=== PATIENT | female | born 1945 | race Caucasian/White ===

== ENCOUNTER → 2023-08-17 11:36 | Outpatient (REF) | payer MEDICARE, OTHER, SELFPAY | LOC: HWRAD 11:36 | PROVIDERS: ATTENDING PHYSICIAN Family Medicine | DX: R63.4 Abnormal weight loss (principal); R19.4 Change in bowel habit | CPT/HCPCS: 74177; Q9967 ==

== ENCOUNTER → 2023-09-03 12:17 | Outpatient (REF) | payer MEDICARE, OTHER, SELFPAY | LOC: HWRAD 12:17 | PROVIDERS: ATTENDING PHYSICIAN Family Medicine | DX: K63.0 Abscess of intestine (principal) | CPT/HCPCS: 74177; Q9967 ==

== ENCOUNTER 2023-09-04 21:01 | Inpatient (IN) | payer MEDICARE, OTHER, SELFPAY ==
[2023-09-04 18:45] VITALS: BP 144/88
[2023-09-04 19:01] LABS: % Basophils 0.4 % (0-2); % Eosinophils 2.1 % (0-6); % Immature Granulocytes 0.2 % (0-0.5); % Lymphocytes 20.5 % (20.5-51.1); % Monocytes 6.4 % (1.7-9.3); % Neutrophils 70.4 % (42.2-75.2); Absolute Eosinophils 0.2 10^3/uL (0-0.7); Absolute Lymphocytes 1.7 10^3/uL (1.2-3.4); Absolute Monocytes 0.5 10^3/uL (0.1-0.6); Absolute Neutrophils 5.7 10^3/uL (1.4-6.5); Hematocrit 35.7 % (37.0-47.0); Hemoglobin 12.5 g/dL (12.0-16.0); Mean Corpuscular Hgb 28.1 pg (27.0-31.0); Mean Corpuscular Volume 80.2 fL (81.0-99.0); Mean Platelet Volume 8.7 fL (7.4-10.4); Nucleated Red Blood Cells % 0 %; Platelet Count 272 10^3/uL (130-400); Red Blood Cell Count 4.45 10^6/uL (4.20-5.40); Red Cell Dist. Width 13.9 % (11.5-14.5); White Blood Cell Count 8.1 10^3/uL (4.8-10.8)
[2023-09-04 19:27] LABS: ALT (SGPT) 14 U/L (0-35); AST (SGOT) 24 U/L (14-36); Alkaline Phosphatase 106 U/L (38-126); Blood Urea Nitrogen 24 mg/dl (7-17); Carbon Dioxide 24 mmol/L (22-30); Chloride 106 mmol/L (98-107); Glucose 113 mg/dl (70-99); Potassium 4.3 mmol/L (3.5-5.1); Sodium 137 mmol/L (135-145); Total Bilirubin 0.4 mg/dl (0.2-1.3); eGFR 58.39
[2023-09-04 20:00] VITALS: BP 154/78
[2023-09-04 20:11] VITALS: BMI 33.7
--- NOTE | 2023-09-04 20:16 | ED.GENMED ---
Addendum entered and electronically signed by Reese Gonzalez DO 09/04/23 20:23:
Reviewed with nursing to reviewed with pharmacy patient was treated with 2 weeks of Levaquin and Flagyl not currently taking
Original Note:
History of Present Illness
General
Chief Complaint: Abdominal Symptoms
Source: patient and previous radiology exam
Exam Limitations: none
Time Seen by Provider: 09/04/23 20:04
History of Present Illness
History of Present Illness:
77-year-old female hypertension prior kidney stone surgery presents from outpatient radiology apparently has CAT scan with diverticular abscess no new issue treated at home with what sounds like Levaquin and Flagyl symptoms improved really not much
pain is having some irregular bowel movements, had a repeat scan today referred to the ER, previously saw Dr. Rivas for colonoscopies not diabetic
Past History
Past History
ED Past Medical History: HTN
ED Past Surgical History: Urological; Negative Bowel resection
Social History
Tobacco: Non-smoker
Alcohol: None
Drug: None
Living: with family
Employment: Retired
Review of Systems
Review of Systems
All Other Systems: Not applicable
Constitutional: Reports fatigue; Denies fever
EENT: Reports no symptoms
Respiratory: Reports no symptoms
Cardiac: Reports no symptoms
ABD/GI: Reports pain (Very mild); Denies abdominal pain, nausea, vomiting or bloody stools
: Reports no symptoms
Musculoskeletal: Reports no symptoms
Skin: Reports no symptoms
Phy Exam
Physical Exam
Physical Exam:
Physical Exam
General: no apparent distress, not acutely ill
Neck: Without jaundice
Heart: s1/s2 regular rate and rhythm, no murmur. equal radial pulses.
Lungs: no acute respiratory distress. clear bilaterally
Abdomen: Soft, minimal lower abdominal tenderness no guarding or
Neuro: alert and oriented. no focal neurological deficits
Skin: no rash
Psychiatric: well kept. interactive and cooperative
Extremities: no edema.
Course
Orders/Labs/Results
Orders:
Orders
09/04/23 18:55
Complete Blood Count/With Diff Urgent
Comprehensive Metabolic Panel Urgent
09/04/23 20:02
Add On- LAB Urgent
Tests Added?: lipase
Abnormal Lab Results
09/04/23
18:55
Hct 35.7 L %
(37.0-47.0)
MCV 80.2 L fL
(81.0-99.0)
BUN 24 H mg/dl
(7-17)
Glucose 113 H mg/dl
(70-99)
09/04/23 18:55
09/04/23 18:55
Vital Signs
Initial and Last Documented VS:
Initial Vital Signs
Temp Pulse Resp BP Pulse Ox
99 F 71 18 144/88 99
09/04/23 18:45 09/04/23 18:45 09/04/23 18:45 09/04/23 18:45 09/04/23 18:45
Last Documented Vital Signs
Temp Pulse Resp BP Pulse Ox
99 F 69 19 154/78 98
09/04/23 18:45 09/04/23 20:00 09/04/23 20:00 09/04/23 20:00 09/04/23 20:00
MDM/Problems Addressed
Differential Diagnosis Includes:
Diverticular abscess diverticulitis
MDM/Problems Addressed:
Diverticular abscess
Chronic conditions affecting care: HTN
Acute Exacerbation and/or Progression of Chronic Illness: HTN
*Radiology
Radiology exam reviewed: radiology read reviewed
*Pulse Oximetry
Patient hypoxic: no
*Critical Care Note
Total Time (30-74mins, 75-104mins- exclusive of procedures): Not Applicable
Update Note
Update Note:
Update patient's labs are noted she is minimally tender nontoxic I do not see any indications for urgent surgery will be admitted to the hospital consult placed to IR nonurgently,
ED Attending Note
-
Portions of this chart may have been created with voice recognition software.� Occasional wrong word or��sound alike� substitutions may have occurred due to the inherent limitations of voice recognition software.
Discharge Plan
Departure
Patient Disposition: Admit
Date of Disposition: 09/04/23
Time of Disposition: 20:18
Admit to: Med/Surg
Presentation/result/management discussed w/ accepting MD/DO: Hospitalist
Condition: Fair
Discharge Problem:
Colonic diverticular abscess
Prescriptions:
No Action
lisinopril 5 MG tablet
20 mg PO BID
hydrochlorothiazide 25 MG tablet
25 mg PO DAILY
Patient Comments:
1/2 tab daily
sertraline 50 MG tablet
75 mg PO DAILY
Patient Comments:
1 1/2 tab daily
lqezqvcabbd-wuiwknpof-skg C-Mn 1 TAB tablet
1,000 mg PO DAILY
Patient Comments:
1500/1200 mg
cholecalciferol (vitamin D3) 1,000 UNITS tablet
1,000 units PO DAILY
atorvastatin 10 MG tablet
10 mg PO DAILY
metoprolol succinate 50 MG tablet extended release 24 hr
50 mg PO DAILY
naproxen sodium [Aleve] 220 MG tablet
1 tab PO DAILY
ciagd-3m-iyg-epa-fish oil 1 EACH capsule,delayed release(DR/EC)
1 tab PO DAILY
aspirin 325 MG tablet,delayed release (DR/EC)
81 mg PO DAILY
Interventions
Interventions:
*Risk Screen - Suicide Last Done: 09/04/23 18:45
*General Assessment Last Done: 09/04/23 18:45
*Neglect/Abuse Screening Last Done: 07/30/24 18:45
Discharge Date and Time
Print Language: SRI LANKAN
--- NOTE | 2023-09-04 20:49 | HPS.HSE ---
Family Physician
-
Family Physician: Merly Marvin
Chief Complaint
-
diarrhea
History of Present Illness
77-year-old female past medical history of hypertension, depression, obesity, hypercholesterolemia, kidney stones, osteoarthritis, presenting for diverticular abscess.
Patient has been having chronic loose stools with occasional diarrhea exacerbated by stress over the past year. She occasionally has pain in her bilateral lower quadrants of her abdomen. Denies any nausea or vomiting or fevers or chills. She saw
her primary care physician and had a CT scan of the abdomen on 08/16 which showed diverticulitis with abscess. She was treated with oral antibiotics without improvement in her symptoms. He had a second CT scan performed yesterday which shows
worsening of the abscess so she was told to come to the emergency room.
She drinks alcohol occasionally. She denies smoking.
Medical History
Past Medical History
Past Medical History: Reports Other (hypertension, depression, obesity, hypercholesterolemia, kidney stones, osteoarthritis,)
Past Surgical History: Reports Orthopedic, Urological and Other (parathyroiectomy, )
Social History
Tobacco: Non-smoker
Alcohol: Occasional
Drug: None
Family History
Family History: Not pertinent
Allergies / Home Medications
Allergies reflects when Allergies were last updated in [employer].
Home Medications with original date entered in [employer]
Allergy/Medication List:
Allergies
Allergy/AdvReac Type Severity Reaction Status Date / Time
Cephalosporins Allergy Unsure Verified 09/04/23 20:11
morphine Allergy HALLUCINATION/SEVERE Verified 09/04/23 20:11
VOMITING
penicillin G Allergy Itching, Verified 09/04/23 20:11
Hives
Penicillins Allergy Itching, Verified 09/04/23 20:11
hives
potassium Allergy Unknown Verified 09/04/23 20:11
Home Medications
tthofspglhi-iobgdrebo-lsl C-Mn 750 mg-600 mg-55 mg-5 mg tablet 1 tab PO DAILY 04/20/14
atorvastatin 10 mg tablet 10 mg PO DAILY 08/14/16
metoprolol succinate 50 mg tablet,extended release 24 hr 50 mg PO DAILY 08/14/16
omega-3s 980 mg-dha 253 mg-epa 647 mg-fish oil capsule,delayed release 1 tab PO DAILY 08/14/16
amlodipine 2.5 mg tablet 2.5 mg PO DAILY 09/04/23
cholecalciferol (vitamin D3) 25 mcg (1,000 unit) tablet 25 mcg PO DAILY 09/04/23
hyoscyamine sulfate 0.125 mg tablet 0.125 mg PO Q4HPRN PRN ibs cramps 09/04/23
lisinopril 20 mg tablet 20 mg PO DAILY 09/04/23
sertraline 100 mg tablet 100 mg PO DAILY 09/04/23
Review of Systems
-
History Source: Patient
A 12 point ROS was completed and negative except as noted: Yes
Constitutional: Reports No Symptoms
EENT: Reports No Symptoms
Respiratory: Reports No Symptoms
Cardiac: Reports No Symptoms
Abdomen/GI: Reports See HPI
: Reports No Symptoms
Musculoskeletal: Reports No Symptoms
Skin: Reports No Symptoms
Neurological: Reports No Symptoms
Endocrine: Reports No Symptoms
Hematologic/Lymphatic: Reports No Symptoms
Psych: Reports No Symptoms
Physical Exam
Vital Signs
Vital Signs
Temp Pulse Resp BP Pulse Ox
99 F 69 19 154/78 98
09/04/23 18:45 09/04/23 20:00 09/04/23 20:00 09/04/23 20:00 09/04/23 20:00
Physical Exam
General: Well Developed, Well Nourished and No Apparent Distress
HEENT: NormoCephalic, Moist mucous membranes and Atraumatic
Respiratory: Clear
Cardiac: S1/S2 and Regular Rhythm; No Murmur or Rub
GI: Soft, Non Distended, Normal Bowel Sounds and Tender (lower quadrants bilterally ); No Organomegaly
Rectal: Deferred by Provider
Musculoskeletal: No Clubbing, No Cyanosis and No Edema
Skin: No Rash
Neuro: Nonfocal/grossly intact
Laboratory Results
-
09/04/23 18:55
09/04/23 18:55
Laboratory Results
Total Bilirubin 0.4 mg/dl (0.2-1.3) 09/04/23 18:55
AST 24 U/L (14-36) 09/04/23 18:55
ALT 14 U/L (0-35) 09/04/23 18:55
Alkaline Phosphatase 106 U/L (38-126) 09/04/23 18:55
Data Reviewed
-
Lab Data: Labs Reviewed by me
Old Records: Reviewed
Impression/Plan
-
IMPRESSION:
PLAN:
# Acute diverticulitis with intramural abscess at left lateral margin
-Levaquin/Flagyl due to allergies
-IR consulted for drainage
-Colorectal surgery consulted
-Clear liquids, n.p.o. past midnight
# Chronic loose stools
-Outpatient follow-up with GI
Essential hypertension
-Continue amlodipine, lisinopril, metoprolol
Depression
-Continue sertraline
Obesity
Hypercholesterolemia
-Continue statin
Kidney stones
Osteoarthritis
DNR/DNI
DVT prophylaxis-SCDs
N.p.o. past midnight
--- NOTE | 2023-09-04 21:34 | PTCARENOTE ---
Pt received from ED to [facility]-2. Pt oriented to room and call ruiz.
[2023-09-04 21:36] LABS: Lipase 63 U/L (23-300)
[2023-09-04] MEDS: LEVAQUIN 150 IV (21:48)
[2023-09-04 22:41] VITALS: BP 151/74; BMI 33.2
[2023-09-04] MEDS: FLAGYL 500 MG 100 IV (23:41)
[2023-09-05] MEDS: FLAGYL 500 MG 100 IV ×2 (05:09→16:24)
[2023-09-05 07:00] VITALS: BP 166/77
[2023-09-05 07:43] LABS: ALT (SGPT) 12 U/L (0-35); AST (SGOT) 21 U/L (14-36); Albumin 3.3 g/dl (3.5-5.0); Alkaline Phosphatase 87 U/L (38-126); Blood Urea Nitrogen 19 mg/dl (7-17); Calcium 9.4 mg/dl (8.4-10.2); Carbon Dioxide 29 mmol/L (22-30); Chloride 107 mmol/L (98-107); Estimated Creatinine Clearance 57 ml/min; Glucose 111 mg/dl (70-99); Potassium 4.3 mmol/L (3.5-5.1); Sodium 139 mmol/L (135-145); Total Bilirubin 0.6 mg/dl (0.2-1.3); Total Protein 5.8 g/dl (6.3-8.2); eGFR > 60.00
[2023-09-05 08:00] LABS: % Basophils 0.6 % (0-2); % Eosinophils 3.2 % (0-6); % Immature Granulocytes 0.4 % (0-0.5); % Lymphocytes 22.4 % (20.5-51.1); % Monocytes 7.9 % (1.7-9.3); % Neutrophils 65.5 % (42.2-75.2); Absolute Eosinophils 0.2 10^3/uL (0-0.7); Absolute Lymphocytes 1.2 10^3/uL (1.2-3.4); Absolute Monocytes 0.4 10^3/uL (0.1-0.6); Absolute Neutrophils 3.5 10^3/uL (1.4-6.5); Hematocrit 32.3 % (37.0-47.0); Hemoglobin 10.8 g/dL (12.0-16.0); Mean Corp Hgb Conc. 33.4 g/dL (33.0-37.0); Mean Corpuscular Hgb 27.6 pg (27.0-31.0); Mean Corpuscular Volume 82.6 fL (81.0-99.0); Mean Platelet Volume 8.9 fL (7.4-10.4); Nucleated Red Blood Cells % 0 %; Platelet Count 217 10^3/uL (130-400); Red Blood Cell Count 3.91 10^6/uL (4.20-5.40); White Blood Cell Count 5.3 10^3/uL (4.8-10.8)
--- NOTE | 2023-09-05 08:06 | CON.IR ---
Consultation
-
Reason for Consultation: Abscess
Medical History
Allergies / Home Medications
Allergy/AdvReac Type Severity Reaction Status Date / Time
Cephalosporins Allergy Unsure Verified 09/04/23 20:11
morphine Allergy HALLUCINATION/SEVERE Verified 09/04/23 20:11
VOMITING
penicillin G Allergy Itching, Verified 09/04/23 20:11
Hives
Penicillins Allergy Itching, Verified 09/04/23 20:11
hives
potassium Allergy Unknown Verified 09/04/23 20:11
�Medication �Instructions �Recorded �Confirmed �Type
ytnwmqpnohc-lgkhyaxtj-zaq C-Mn 750 1 tab PO DAILY Supplement 04/20/14 09/04/23 History
mg-600 mg-55 mg-5 mg tablet
atorvastatin 10 mg tablet 10 mg PO DAILY High Cholesterol 08/14/16 09/04/23 History
metoprolol succinate 50 mg 50 mg PO DAILY Blood Pressure 08/14/16 09/04/23 History
tablet,extended release 24 hr
omega-3s 980 mg-dha 253 mg-epa 647 1 tab PO DAILY Supplement 08/14/16 09/04/23 History
mg-fish oil capsule,delayed release
amlodipine 2.5 mg tablet 2.5 mg PO DAILY Blood Pressure 09/04/23 09/04/23 History
cholecalciferol (vitamin D3) 25 25 mcg PO DAILY Supplement 09/04/23 09/04/23 History
mcg (1,000 unit) tablet
hyoscyamine sulfate 0.125 mg tablet 0.125 mg PO Q4HPRN PRN ibs cramps 09/04/23 09/04/23 History
lisinopril 20 mg tablet 20 mg PO DAILY Blood Pressure 09/04/23 09/04/23 History
sertraline 100 mg tablet 100 mg PO DAILY Depression 09/04/23 09/04/23 History
Physical Exam
Vital Signs
Temp Pulse Resp BP Pulse Ox
97.9 F 56 18 166/77 98
09/05/23 07:00 09/05/23 07:00 09/05/23 07:00 09/05/23 07:00 09/05/23 07:00
Lab Results
09/05/23 06:34
09/05/23 06:34
Assessment / Plan
-
Reviewed imaging. Small perisigmoid abscess which does not have a safe window through which to aspirate or place a drain. As such, we will defer intervention at this time.
--- NOTE | 2023-09-05 09:06 | CON.CRS ---
Consultation
-
Date/Time Consultation Requested: 09/04/2023, 21:34
Date/Time Consultation Performed: 09/05/2023, 08:15
Requesting Provider: Natali Avila MD
Performing Provider: Johnathon Page MD
Reason for Consultation: diverticulitis
Medical History
-
Chief Complaint: Abdominal pain
History of Present Illness:
77-year-old female with a past medical history of hypertension hypercholesterolemia and obesity presents to [facility] due to abnormal CT scan performed yesterday. The patient was treated for diverticulitis earlier this month and underwent
a CT scan on 08/17/2023 which showed an intramural abscess adjacent to the sigmoid colon measuring 2.4 x 2.2 x 1.0 cm. She was treated with outpatient oral antibiotics. She had a repeat CT scan on which showed a 7 cm in length segment of acute
diverticulitis with a 3.9 cm feces filled intramural abscess of the left lateral margin which has increased in size. Given this finding her primary care physician recommended she go to the emergency room. The patient states her bowel movements
have been mucus-like in nature since onset of this problem. Also for about the past year her bowels have been abnormal which prompted the initial CT at the beginning of August. She has never had diverticulitis before. She is actually felt better
overall since starting the oral antibiotics. She is hungry and would like to eat something. Her main complaint is fatigue. Her last colonoscopy was on 07/22/[address] Rivas which showed normal mucosa in the entire colon. In the ER her WBC
was 8.1 and is 5.3 today. She has been started on IV antibiotics. She was kept n.p.o. for potential of IR procedure for drainage of the abscess later today. We have been consulted for further surgical recommendations.
Past Medical History
Past Medical History: HTN, Hypercholesterolemia and Other (depression, obesity, osteoarthritis, kidney stones)
Past Surgical History: Other (parathyroiectomy, kidney stones)
Social History
Tobacco: Non-Smoker
Alcohol: Occasional
Drug: None
Family History
Family History: Reviewed & Not Pertinent
Allergies / Home Medications
Allergy/AdvReac Type Severity Reaction Status Date / Time
Cephalosporins Allergy Unsure Verified 09/04/23 20:11
morphine Allergy HALLUCINATION/SEVERE Verified 09/04/23 20:11
VOMITING
penicillin G Allergy Itching, Verified 09/04/23 20:11
Hives
Penicillins Allergy Itching, Verified 09/04/23 20:11
hives
potassium Allergy Unknown Verified 09/04/23 20:11
�Medication �Instructions �Recorded �Confirmed �Type
vmaicdtflpd-abrdqzybh-kuu C-Mn 750 1 tab PO DAILY Supplement 04/20/14 09/04/23 History
mg-600 mg-55 mg-5 mg tablet
atorvastatin 10 mg tablet 10 mg PO DAILY High Cholesterol 08/14/16 09/04/23 History
metoprolol succinate 50 mg 50 mg PO DAILY Blood Pressure 08/14/16 09/04/23 History
tablet,extended release 24 hr
omega-3s 980 mg-dha 253 mg-epa 647 1 tab PO DAILY Supplement 08/14/16 09/04/23 History
mg-fish oil capsule,delayed release
amlodipine 2.5 mg tablet 2.5 mg PO DAILY Blood Pressure 09/04/23 09/04/23 History
cholecalciferol (vitamin D3) 25 25 mcg PO DAILY Supplement 09/04/23 09/04/23 History
mcg (1,000 unit) tablet
hyoscyamine sulfate 0.125 mg tablet 0.125 mg PO Q4HPRN PRN ibs cramps 09/04/23 09/04/23 History
lisinopril 20 mg tablet 20 mg PO DAILY Blood Pressure 09/04/23 09/04/23 History
sertraline 100 mg tablet 100 mg PO DAILY Depression 09/04/23 09/04/23 History
Review of Systems
-
A 10 point review of systems was completed, and was negative except as per HPI.
Physical Exam
Vital Signs
Temp 97.9 F 09/05/23 07:00
Pulse 56 09/05/23 07:00
Resp Rate 18 09/05/23 07:00
Blood pressure 166/77 09/05/23 07:00
SaO2 98 09/05/23 07:00
09/04/23 09/05/23 09/06/23
06:59 06:59 06:59
Actual Weight 87.77 kg
Body Mass Index (BMI) 33.2
Lab Results / Allergies
09/05/23 06:34
09/05/23 06:34
WBC 5.3 10^3/uL (4.8-10.8) 09/05/23 06:34
Hgb 10.8 g/dL (12.0-16.0) L 09/05/23 06:34
Hct 32.3 % (37.0-47.0) L 09/05/23 06:34
Plt Count 217 10^3/uL (130-400) D 09/05/23 06:34
Abs Immat Gran (auto) 0.0 10^3/uL (0-0.05) 09/05/23 06:34
Neutrophils % 65.5 % (42.2-75.2) 09/05/23 06:34
Allergy/AdvReac Type Severity Reaction Status Date / Time
Cephalosporins Allergy Unsure Verified 09/04/23 20:11
morphine Allergy HALLUCINATION/SEVERE Verified 09/04/23 20:11
VOMITING
penicillin G Allergy Itching, Verified 09/04/23 20:11
Hives
Penicillins Allergy Itching, Verified 09/04/23 20:11
hives
potassium Allergy Unknown Verified 09/04/23 20:11
Physical Exam
General: Well Developed and Well Nourished
GI: Soft, Non Distended and Tender (Mild left lower quadrant)
Neuro: AO x 3
Psych: Calm
Data Reviewed
-
CT Scan: Image Personally Visualized and interpreted, Report Reviewed by me and Discussed with Patient
Labs: Labs Reviewed by me, Discussed with Physician and Discussed with Patient
Old Records: Reviewed
Assessment / Plan
-
Assessment: 77-year-old female first attack of diverticulitis found to have sigmoid diverticulitis on 2 CT scans about 2 weeks apart with an increase in intramural abscess
Plan:
IR has been consulted and there is no safe window which aspirator to place a drain. Given this, we will consult ID for further antibiotic recommendations. Okay to advance diet to clears and continue IV fluids. If she were to worsen she will
require a colectomy with colostomy creation. However plan for now is to get through this admission with IV antibiotics and then can discuss elective surgery as an outpatient with Dr. Page in the office. Plan was discussed with patient.
[2023-09-05] MEDS: ZOLOFT 100 MG PO (09:13)
[2023-09-05] MEDS: ZESTRIL 20 MG PO (09:13)
[2023-09-05] MEDS: NORVASC 2.5 MG PO (09:14)
[2023-09-05] MEDS: VITAMIN D3 (cholecalciferol) 25 MCG PO (09:14)
[2023-09-05] MEDS: LIPITOR 10 MG PO (09:14)
[2023-09-05] MEDS: TOPROL XL 50 MG PO (09:15)
--- NOTE | 2023-09-05 13:31 | W.PN.UPDATE ---
Update Note
Progress Note Update
I saw and evaluated the patient. Please see the additional additions/corrections to the residents independent note. I will review the residents note after it is filed.
Ms King is a 77 year old female with history of renal stones who has been managed diverticulitis with 2.4x2.2x1.0 cm intramural abscess of the sigmoid since 08/17/23. No known history of diverticulitis. She first presented to her PCP 07/30 for a
change in bowel movements and diarrhea which she related to anxiety over about two with about 6 lbs unintentional weight loss of 9 months. Reporting 3 small soft BMs QAM without blood, then two further BMs in the evening. Of note 07/22/18
colonoscopy nonrevealing, plan to repeat at 10 years. She was planned for CT a/p which showed the sigmoid diverticulitis and the intramural abscess. She was prescribed levofloxacin 500 mg PO qday and metronidazole 250 mg PO TID both for 14 days.
The case was reviewed with IR and GI. There were plans to repeat the CT scan in two weeks 09/02). CT was repeated and sigmoid diverticulitis had persisted and the abscess was noted to be filled with feces and increased in size to 3 x 3.5 x 3.9 cm.
two stable splenic lesions were also noted.
Since arrival here patient has been afebrile, hd stable, without leukocytosis
Allergy history
Medical History
Past Medical History
Past Medical History: Reports Other (hypertension, depression, obesity, hypercholesterolemia, kidney stones, osteoarthritis,)
Past Surgical History: Reports Orthopedic, Urological and Other (parathyroidectomy, ) bilateral knee replacements with one revision, kidney stone removal
Social History
Tobacco: Non-smoker
Alcohol: Occasional
Drug: None
Family History
Family History: Not pertinent
Allergy History:
Allergy: penicillin G:
<del>cephalosporins</del> <del>-</del> <del>denied</del>
morphine hallucinations - ADR
Home meds reviewed:
ROS: negative except as listed above
VS: no recorded fevers, BP and VS stable
PE: Gen: NAD
Resp: CTA BL no r/r/r
CV: s1/s2 rrr, no mgr
GI: soft, nd, mildly tender in the RLQ, nabs
msk: no edema
skin: no rashes
Labs: reviewed as noted
no cultures
CT a/p with IV and oral contrast: feces filled abscess 3.0 x 3.5 x 3.9 cm in AP and acute diverticulitis; incidental note of two splenic lesions that are stable
I reviewed the CT scan personally
A&P
77 year old female with chronic increase in BMs for months, without abdominal pain, found to have sigmoid diverticulitis with abscess 07/22, treated with oral levofloxacin 500 and oral metronidazole 250 mg for two weeks with notable progression on
follow up imaging. Symptoms currently include fatigue, no abdominal pain. Evaluated by IR and colorectal surgery and planned for medical management.
- if febrile over 100.5 orally then send blood cultures x2
- patient currently on levofloxacin 750 and metronidazole 500 mg IV TID - given progression on levofloxacin 500 qday and metronidazole 250 mg tid favor switch to alternative regimen
- at the point switch to ertapenem 1 gm IV q24 hours
- discussed at length signs of perforation and that even with aggressive IV antibiotics there is still risk of perforation
- baseline esr and crp in the AM
- plan 4 weeks of IV treatment
- picc line
- weekly cbc, bmp, esr, crp
- follow up with repeat ct scan in about 3-4 weeks and follow up with me in 3-4 weeks
Tomas Calhoun
--- NOTE | 2023-09-05 13:32 | W.PN.HOSP.TC ---
Today's Communication/Plan
-
folllow up id rec for atb
advance diet as tolerated. start cld
Assessment / Plan
Assessment / Plan
NAD, resting comfortably in bed
Scleral anicteric
Moist mucous membranes
No JVD
CTA bilateral
Normal S1-S2 no murmurs
Soft nontender nondistended bowel sounds active
No peripheral pitting edema
Moves extremities spontaneously
AAOx3
Diverticulitis with small abscess unable to drain per IR. Colorectal surgery evaluated continue IV antibiotics consult ID. Therefore ID has been consulted. At this time we will go ahead and initiate clear liquid diet. If decompensate colorectal
surgery would take her to the OR for colectomy/colostomy. Otherwise outpatient elective surgery follow-up
Hypertension continued hypertensive
Depression continue sertraline
Hypercholesterolemia continues stati
Anticipated Discharge: Within 24 hours
Subjective/Interval History
-
Date of Service: September 05, 2023
seen and examined
in good spirits
asking when she will be discahrged
Objective Data
-
Labs:
Laboratory Results
09/05/23
06:34
WBC 5.3
Hgb 10.8 L
Hct 32.3 L
Plt Count 217 D
Sodium 139
Potassium 4.3
Chloride 107
Carbon Dioxide 29
BUN 19 H
Creatinine 0.9
Glucose 111 H
Calcium 9.4
Total Bilirubin 0.6
AST 21
ALT 12
Alkaline Phosphatase 87
Vital Signs:
Vital Signs
Temp Pulse Resp BP Pulse Ox
97.9 F 56 18 166/77 98
09/05/23 07:00 09/05/23 07:00 09/05/23 07:00 09/05/23 07:00 09/05/23 07:00
I&O
09/04/23 09/05/23 09/06/23
06:59 06:59 06:59
Intake Total 600 / 600
Balance 600 / 600
[2023-09-05 15:24] VITALS: BP 150/76
--- NOTE | 2023-09-05 16:31 | CM ---
Addendum entered by Ernestina Meek 09/05/23 16:38:
[place]
[phone]

Original Note:
regulatory affairs manager reviewed patient's chart and met with patient and patient lives alone in a one story home with 2 steps to enter, Patient is independent with adl's and ambulation. Patient is for possible discharge to home on IV Invanz 1gm Q24, referral
sent to [facility] and referral sent to [facility] visiting nurses. Patient mentioned that she would like to go to [place] for a few days and [facility] made aware and patient maybe able to do this per [facility].
PCP: Merly Marvin
Pharmacy [facility].
Plan; Home with IV ABX from [facility] and [facility] visiting nurses.
--- NOTE | 2023-09-05 16:54 | CON.ID ---
Addendum entered and electronically signed by Radha Calhoun MD 09/06/23 08:40:
I personally performed a history and physical exam of the patient and discussed management with the resident. I reviewed the resident's note and agree with the documented findings and plan of care HPI/CC with the additions/corrections listed in the
separate update note from the same day
Original Note:
Chief Complaint / Past History
Chief Complaint
Chronic diarrhea, diverticulitis + left intramural abscess
History of Present Illness
77-year-old female with history of chronic loose stools, obesity, hypertension, hyperparathyroidism, esophageal reflux, kidney stones, osteoarthritis, who was sent to the ED by her primary care physician after repeat CT of abdomen (09/02) revealed
worsening diverticulitis with left intramural abscess compared to 2 weeks prior. She had completed 2-week course of Levaquin 500 mg once daily and metronidazole 250 mg 3 times daily after first CT abdomen (08/16) revealed sigmoid diverticulitis and
Intramural abscess adjacent to the sigmoid colon, measuring 2.4 x 2.2 x 1.0 cm.
Imaging study was initially obtained as part of workup for chronic loose stools for about 1 year, exacerbated by stress. Pt describes having up to 3 loose/mucus-like bowel movements on most mornings. Occasional mild pain/tenderness in RLQ prior to
bowel movements, but otherwise no abdominal pain. She denies fevers/chills or bloody/dark stool, but has had fatigue as a prominent chronic symptom. she has had a 6lb weight loss since start of chronic bowel symptoms.
Previous colonoscopy 07/22/2018 showed normal colonic mucosa with normal biopsies.
Upon arrival to ED, she was afebrile with stable vitals, WBCs 8.1, platelets 272, creatinine 0.9. She was started on IV Levaquin, Flagyl
Past History
Past Medical History: HTN and Other (Esophageal reflux, hyperparathyroidism, obesity, anxiety/depression, osteoarthritis, kidney stones)
Past Surgical History: Orthopedic (Bilateral knee replacements +1 revision, ), Urological (Kidney stones) and Other (Parathyroidectomy)
Allergy History:
morphine Allergy (Verified 09/04/23 20:11)
HALLUCINATION/SEVERE VOMITING
penicillin G Allergy (Verified 09/04/23 20:11)
Itching, Hives
Penicillins Allergy (Verified 09/04/23 20:11)
Itching, hives
potassium Allergy (Verified 09/04/23 20:11)
Unknown
Social History
Tobacco: Non-Smoker
Alcohol: Occasional
Drug: None
Family History
Family History: Not Pertinent
Review of Systems
Review of Systems
General: Negative Fever or Chills
HEENT: Headache
Cardiovascular: Negative Chest Pain or Palpitations
Gasteroenterology: Other (loose stools. No constipation. No bloody/dark stool. No abdominal pain)
Genital / Urological: Other (no retention ); Negative Dysuria
Vital Signs
Temp Pulse Resp BP Pulse Ox
98.2 F 56 16 150/76 96
09/05/23 15:24 09/05/23 15:24 09/05/23 15:24 09/05/23 15:24 09/05/23 15:24
Physical Exam
Physical Exam
Constitutional: No Acute Distress and Comfortable
Cardiovascular: Regular Rate and S1/S2; Negative Murmur, Rub or Peripheral Edema
Pulmonary: Clear and Non Labored; Negative Wheezes, Rales or Rhonchi
Gastrointestinal: Soft, Tender (Mild tenderness to deep palpation right lower quadrant), Non Distended, Normal Bowel Sounds, No Rebound and No Guarding
Genito-Urinary: Negative Suprapubic Tenderness
Extremities: Negative Edema
Skin: Warm and Dry
Neurological: Awake, Alert and Oriented
Psychological: Calm
Lines: PIV (Left antecubital fossa, non-erythematous, no swelling or tenderness)
Lab / Diagnostic Study Results
09/05/23 06:34
09/05/23 06:34
Abs Immat Gran (auto) 0.0 10^3/uL (0-0.05) 09/05/23 06:34
Absolute Neuts (auto) 3.5 10^3/uL (1.4-6.5) 09/05/23 06:34
Absolute Lymphs (auto) 1.2 10^3/uL (1.2-3.4) 09/05/23 06:34
Absolute Monos (auto) 0.4 10^3/uL (0.1-0.6) 09/05/23 06:34
Absolute Basos (auto) 0.0 10^3/uL (0-0.2) 09/05/23 06:34
Immature Gran % 0.4 % (0-0.5) 09/05/23 06:34
Neutrophils % 65.5 % (42.2-75.2) 09/05/23 06:34
Lymphocytes % 22.4 % (20.5-51.1) 09/05/23 06:34
Monocytes % 7.9 % (1.7-9.3) 09/05/23 06:34
Eosinophils % 3.2 % (0-6) 09/05/23 06:34
Basophils % 0.6 % (0-2) 09/05/23 06:34
Assessment / Plan
77-year-old female with diverticulitis and left intramural abscess
Diverticulitis plus left intramural abscess
-worse despite 2-week course of levo floxacillin 500 mg once daily, metronidazole 250 3 times daily.
-IR unable to access due to location of abscess
-Afebrile, no leukocytosis, denies abdominal pain
-Was on IV metronidazole 500 mg every 8, IV levofloxacin 750 mg daily. Given failed abx course on these antibiotics, and possible risk of abx resistance, will convert to 4 week course of IV Ertapenem for adequate coverage. Pt is agreeable to home IV
with weekly follow up. Believes she can manage care. Daughter and son lives close to patient and intend to help arrange care if needed.
-PICC line for daily home IV
-CM to arrange home IV
-Consider colorectal surgery if poor response to current abx plan
[2023-09-05] MEDS: INVANZ 60 MG IV (18:31)
[2023-09-05 23:44] VITALS: BP 144/74
[2023-09-06 07:20] VITALS: BP 173/83
[2023-09-06 08:05] LABS: Erythrocyte Sed Rate 54 mm/hour (0-20)
--- NOTE | 2023-09-06 09:08 | W.PN.CRS1 ---
Today's Communication / Plan
-
antibiotics per ID - outpatient picc/IV abx
surgical planning in an outpatient setting
okay for d/c if tolerates low residue diet
Assessment/Plan
-
Assessment: 77-year-old female first attack of diverticulitis found to have sigmoid diverticulitis on 2 CT scans about 2 weeks apart with an increase in intramural abscess
Plan:
- Advance diet to low residue
- Appreciate ID for management of antibiotics as an outpatient- PICC line and IV antibiotics
- No plans for surgery during this admission
- Patient will need to follow up in the office for surgical planning with Dr. Page to undergo a robotic sigmoidectomy in the near future. Discussed with patient. Our office will start working on arrangements. Okay for discharge from our perspective
if tolerates low residue and when antibiotics are in place.
Subjective Data
Subjective Data
Date of Service: September 06, 2023
Patient states she feels 'good'. She has no pain. She has mucus like bowel movements. She hasn't had flatus today yet. She has no nausea or vomiting.
Objective Data
-
Vital Signs
Temp Pulse Resp BP Pulse Ox
98.0 F 60 16 173/83 98
09/06/23 07:20 09/06/23 07:20 09/06/23 07:20 09/06/23 07:20 09/06/23 07:20
Intake & Output
09/05/23 09/06/23 09/07/23
06:59 06:59 06:59
Intake Total 600 / 600 1600 / 1600
Balance 600 / 600 1600 / 1600
Intake:
Oral fluids 600 / 600 1500 / 1500
IV piggybacks 100 / 100
Other:
Number of approximated MODERATE 3 1
amounts of urine
Number of approximated LARGE 1
amounts of urine
Lab Results
09/05/23 06:34
09/05/23 06:34
Physical Exam
-
General: No Acute Distress and AOx3
Abdomen: Soft, Non Distended and Non Tender
Skin: Warm and Dry
--- NOTE | 2023-09-06 09:52 | W.PN.ID1 ---
Addendum entered and electronically signed by Radha Calhoun MD 09/06/23 12:11:
I saw and evaluated the patient. I discussed with Dr Garcia. I reviewed the resident�s note and agree with findings and plan as documented in the resident�s note with the following additions/corrections:
S: afebrile, quite hypertensive this AM
surgery planned for 6 weeks from now
O: VSS
Focused exam: Gen: no acute distress
GI: soft, nondistended, nontender, mild RLQ tenderness, no rebound, no guarding
DLOA: awaiting PICC, PIV currently in place
Labs:
ESR: 54
CRP 5.9
Assessment and Plan:
77 year old female with chronic increase in BMs for months, without abdominal pain, found to have sigmoid diverticulitis with abscess 07/22, treated with oral levofloxacin 500 and oral metronidazole 250 mg for two weeks with notable progression on
follow up imaging. Symptoms currently include fatigue, no abdominal pain. Evaluated by IR and colorectal surgery and planned for medical management.
- switch to ertapenem 1 gm IV q24 hours
- discussed at length signs of perforation and that even with aggressive IV antibiotics there is still risk of perforation - she expressed understanding
- plan 6 weeks of IV treatment - to coordinate with surgery
- picc line is ordered
- weekly cbc, bmp, esr, crp while on home iV antibiotics
- follow up with repeat ct scan in about 3-4 weeks and follow up with me in 3-4 weeks
AW
Original Note:
Date of Service
Date of Service: September 06, 2023
Today's Communication
To get Picc line for Home IV. Okay to DC home with [facility]
Assessment / Plan
77-year-old female with diverticulitis and left intramural abscess
Diverticulitis plus left intramural abscess
-worse despite 2-week course of levofloxacin 500 mg once daily, metronidazole 250 3 times daily.
-IR unable to access due to location of abscess
-Afebrile, no leukocytosis, denies abdominal pain
-Was on IV metronidazole 500 mg every 8, IV levofloxacin 750 mg daily. Given failed abx course on these antibiotics, and possible risk of abx resistance, will convert to 4 week course of IV Ertapenem for adequate coverage. Pt is agreeable to home IV
with weekly follow up. Believes she can manage with VN. Daughter and son lives close to patient and intend to help arrange care if needed. Daughter shaan is a nurse.
-PICC line for daily home IV
-CM to arrange home IV
-Colorectal surgery to schedule robotic sigmoidectomy in 6 weeks
-Consider colorectal surgery if poor response to current abx plan
Chief Complaint
-: Other (Loose stools, diverticulitis, left intramural abscess)
Subjective / Review of Systems
No fever overnight.
Pt is comfortable with plan of care
Review of Systems: No Fever, No Chills, No Abdominal Pain and No Nausea
Vital Signs / Physical Exam
Vital Signs
Vital Signs
Temp Pulse Resp BP Pulse Ox
98.0 F 60 16 173/83 98
09/06/23 07:20 09/06/23 07:20 09/06/23 07:20 09/06/23 07:20 09/06/23 07:20
Physical Exam
Constitutional: No Acute Distress and Comfortable
Cardiovascular: Regular Rate and S1/S2; Negative Murmur or Rub
Pulmonary: Non Labored and Other (faint crackles in R lung base); Negative Wheezes or Rhonchi
Gastrointestinal: Soft, Tender (mildly tender to deep palpation in R and L LQs), Non Distended, Normal Bowel Sounds, No Rebound and No Guarding
Skin: Warm and Dry
Neurological: Awake, Alert and Oriented
Psychological: Calm
Lines: PIV (L antecubital fossa, intact)
Objective Data
Lab Data
Lab Results
09/05/23 06:34
09/05/23 06:34
ESR 54 mm/hour (0-20) H 09/06/23 06:41
Estimated Creat Clear 57 ml/min 09/05/23 06:34
Total Bilirubin 0.6 mg/dl (0.2-1.3) 09/05/23 06:34
AST 21 U/L (14-36) 09/05/23 06:34
ALT 12 U/L (0-35) 09/05/23 06:34
Alkaline Phosphatase 87 U/L (38-126) 09/05/23 06:34
C-Reactive Protein 5.90 mg/L (0.0-10.00) 09/06/23 06:41
Most recent labs reviewed.
[2023-09-06] MEDS: NORVASC 2.5 MG PO (10:19)
[2023-09-06] MEDS: TOPROL XL 50 MG PO (10:20)
[2023-09-06] MEDS: ZOLOFT 100 MG PO (10:20)
[2023-09-06] MEDS: ZESTRIL 20 MG PO (10:20)
[2023-09-06] MEDS: LIPITOR 10 MG PO (10:21)
[2023-09-06] MEDS: VITAMIN D3 (cholecalciferol) 25 MCG PO (10:21)
--- NOTE | 2023-09-06 13:36 | W.PN.HOSP.TC ---
Today's Communication/Plan
-
dc home
Assessment / Plan
Assessment / Plan
NAD, resting comfortably in bed
Scleral anicteric
Moist mucous membranes
No JVD
CTA bilateral
Normal S1-S2 no murmurs
Soft nontender nondistended bowel sounds active
No peripheral pitting edema
Moves extremities spontaneously
AAOx3
Diverticulitis with small abscess unable to drain per IR. Colorectal surgery evaluated continue IV antibiotics consult ID. Therefore ID has been consulted. At this time we will go ahead and initiate clear liquid diet. If decompensate colorectal
surgery would take her to the OR for colectomy/colostomy. Otherwise outpatient elective surgery follow-up
-IV ertapenem x4 weeks per ID recs. Picc line to be placed
Hypertension continued hypertensive
Depression continue sertraline
Hypercholesterolemia continues stati
Anticipated Discharge: Today
Subjective/Interval History
-
Date of Service: September 06, 2023
no complaints.
ready to go home.
asking how the picc line will be placed
Objective Data
-
Vital Signs:
Vital Signs
Temp Pulse Resp BP Pulse Ox
98.0 F 60 16 173/83 98
09/06/23 07:20 09/06/23 07:20 09/06/23 07:20 09/06/23 07:20 09/06/23 07:20
I&O
09/05/23 09/06/23 09/07/23
06:59 06:59 06:59
Intake Total 600 / 600 1600 / 1600
Balance 600 / 600 1600 / 1600
--- NOTE | 2023-09-06 13:37 | W.DCSUMMARY ---
Discharge Summary
Discharge Data
Date of Admission: 09/04/23
Date of Discharge: 09/06/23
-
Pending Results: No
Hospital Course
Presented for failed antibiotic therapy of diverticulitis with new abscess formation on outpatient CT. Evaluated by interventional radiology unable to drain percutaneously as there were no adequate windows/safe windows to enter from. Evaluated by
colorectal surgery who did not believe immediate surgical intervention was required and recommended ID consultation. ID evaluated as she had failed outpatient therapy with levofloxacin and Flagyl x 2 weeks they have recommended 4 weeks of IV
ertapenem for which the script will be written by ID. Agreeable for discharge home on IV are dependent PICC line to be placed.
IMPRESSION:
1). There is an approximately 9 cm in length segment of acute diverticulitis in the sigmoid colon associated with 3.9 cm feces filled intramural abscess at its left lateral margin. This intramural abscess has increased in size when compared with the
prior study
2).There is a 2 cm probably benign low density splenic mass, stable compared with prior study
3). Bilateral renal cysts.
4). 2 mm nonobstructing calculus at the lower pole of the right kidney
Discharge Plan
-
Patient Disposition: Home (Routine Discharge)
Discharge Diagnosis/Procedures: Diverticulitis with abscess
Condition: Good
Diet: Low Residue
Activity: As tolerated
Other Services: VN
Activity Restrictions/Additional Instructions:
Presented for failed antibiotic therapy of diverticulitis with new abscess formation on outpatient CT. Evaluated by interventional radiology unable to drain percutaneously as there were no adequate windows/safe windows to enter from. Evaluated by
colorectal surgery who did not believe immediate surgical intervention was required and recommended ID consultation. ID evaluated as she had failed outpatient therapy with levofloxacin and Flagyl x 2 weeks they have recommended 4 weeks of IV
ertapenem for which the script will be written by ID. Agreeable for discharge home on IV are dependent PICC line to be placed.
IMPRESSION:
1). There is an approximately 9 cm in length segment of acute diverticulitis in the sigmoid colon associated with 3.9 cm feces filled intramural abscess at its left lateral margin. This intramural abscess has increased in size when compared with the
prior study
2).There is a 2 cm probably benign low density splenic mass, stable compared with prior study
3). Bilateral renal cysts.
4). 2 mm nonobstructing calculus at the lower pole of the right kidney
Instructions: Low Fiber Diet
Referrals:
Keshawn Page MD [Active] - in two to three weeks
Merly Marvin MD [Family Provider] -
Chel Venegas MD [Active] - in four to six weeks
Prescriptions:
New
Ertapenem [Invanz] 1000 MG
0.9% Sodium Chloride [Nss] 50 ML
120 mls/hr IV Q24H
Ordered By: Nicholas Díaz MD
Last Taken: 09/05/23 18:31 60 mls
Continued
frqogshdrdj-pdwdndcke-miy C-Mn 1 TAB tablet
1 tab PO DAILY
Patient Comments:
1500/1200 mg
atorvastatin 10 MG tablet
10 mg PO DAILY
metoprolol succinate 50 MG tablet extended release 24 hr
50 mg PO DAILY
gxlng-2t-ksc-epa-fish oil 1 EACH capsule,delayed release(DR/EC)
1 tab PO DAILY
lisinopril 20 mg Tablet
20 mg PO DAILY
sertraline 100 mg Tablet
100 mg PO DAILY
amlodipine 2.5 mg Tablet
2.5 mg PO DAILY
hyoscyamine sulfate 0.125 mg Tablet
0.125 mg PO Q4HPRN PRN (Reason: ibs cramps)
cholecalciferol (vitamin D3) 25 mcg (1,000 unit) Tablet
25 mcg PO DAILY
Discharge Orders:
Discharge Patient (As Directed); Ordered 09/06/23
Ordered By: Nicholas Díaz
Discharge Date and Time
Print Language: CAMEROONIAN
--- NOTE | 2023-09-06 13:42 | CM ---
Addendum entered by Jennifer Islas 09/06/23 14:29:
Met with patient and adult children at bedside to discuss discharge plan
IMM benefit explained; form signed @ 1424
Son and Daughter will provide transport home
Original Note:
Prescription, demographics, and clinical information faxed to Angelica @ [facility]
Plan: DC to home today with [facility] and [facility] for IV ABX infusion
[facility] Office
[2023-09-06] MEDS: INVANZ 60 MG IV (14:01)
[2023-09-06 14:45] VITALS: BP 151/86
== END 2023-09-06 15:20 | disposition home health service (06) | DRG 392 ==
LOC: 4 WEST ACU 21:01
PROVIDERS: Emergency Medicine; ADMITTING PHYSICIAN Hospitalist; ATTENDING PHYSICIAN Hospitalist; CONSULT PHYSICIAN Student in an Organized Health Care Education/Training Program; CONSULT PHYSICIAN Surgery; EMERGENCY PHYSICIAN Emergency Medicine; FAMILY PHYSICIAN Family Medicine
DX: K57.20 Diverticulitis of large intestine with perforation and abscess without bleeding (principal); F32.A Depression, unspecified; I10 Essential (primary) hypertension; E66.9 Obesity, unspecified; Z68.33 Body mass index [BMI] 33.0-33.9, adult; E78.00 Pure hypercholesterolemia, unspecified; M19.90 Unspecified osteoarthritis, unspecified site; E89.2 Postprocedural hypoparathyroidism; F41.9 Anxiety disorder, unspecified; Z66 Do not resuscitate; K21.9 Gastro-esophageal reflux disease without esophagitis; K52.9 Noninfective gastroenteritis and colitis, unspecified; R53.83 Other fatigue; Z96.653 Presence of artificial knee joint, bilateral; Z79.899 Other long term (current) drug therapy; Z87.442 Personal history of urinary calculi; Z88.0 Allergy status to penicillin; Z88.1 Allergy status to other antibiotic agents; Z88.5 Allergy status to narcotic agent
CPT/HCPCS: 71045; 74177; 80053; 83690; 85025; 85652; 86140; 99285; J1335; Q9967

== ENCOUNTER → 2023-09-21 13:34 | Outpatient (REF) | payer MEDICARE, OTHER, SELFPAY | LOC: HWRAD 13:34 | PROVIDERS: ATTENDING PHYSICIAN Student in an Organized Health Care Education/Training Program; FAMILY PHYSICIAN Family Medicine | DX: K63.0 Abscess of intestine (principal) | CPT/HCPCS: 74177; Q9967 ==

== ENCOUNTER 2023-10-19 06:03 | Inpatient (IN) | payer MEDICARE, OTHER, SELFPAY ==
[2023-10-15 09:36] VITALS: BMI 33.8
[2023-10-15 10:09] LABS: % Basophils 0.2 % (0-2); % Eosinophils 1.4 % (0-6); % Immature Granulocytes 0.3 % (0-0.5); % Lymphocytes 9.3 % (20.5-51.1); % Monocytes 4.8 % (1.7-9.3); Absolute Eosinophils 0.1 10^3/uL (0-0.7); Absolute Lymphocytes 0.9 10^3/uL (1.2-3.4); Absolute Monocytes 0.5 10^3/uL (0.1-0.6); Absolute Neutrophils 8.3 10^3/uL (1.4-6.5); Hematocrit 35.8 % (37.0-47.0); Hemoglobin 12.2 g/dL (12.0-16.0); Mean Corp Hgb Conc. 34.1 g/dL (33.0-37.0); Mean Corpuscular Hgb 27.4 pg (27.0-31.0); Mean Corpuscular Volume 80.4 fL (81.0-99.0); Mean Platelet Volume 9.5 fL (7.4-10.4); Nucleated Red Blood Cells % 0 %; Platelet Count 261 10^3/uL (130-400); Red Blood Cell Count 4.45 10^6/uL (4.20-5.40); Red Cell Dist. Width 13.3 % (11.5-14.5); White Blood Cell Count 9.8 10^3/uL (4.8-10.8)
[2023-10-15 10:15] LABS: INR 1.12; PT 14.2 Sec (11.4-14.6)
[2023-10-15 10:16] LABS: ALT (SGPT) 17 U/L (0-35); APTT 29.7 Sec (23.4-35.0); AST (SGOT) 24 U/L (14-36); Alkaline Phosphatase 146 U/L (38-126); Blood Urea Nitrogen 20 mg/dl (7-17); Calcium 10.1 mg/dl (8.4-10.2); Carbon Dioxide 26 mmol/L (22-30); Chloride 104 mmol/L (98-107); Estimated Creatinine Clearance 62 ml/min; Glucose 120 mg/dl (70-99); Potassium 4.2 mmol/L (3.5-5.1); Sodium 143 mmol/L (135-145); Total Bilirubin 0.9 mg/dl (0.2-1.3); Total Protein 6.9 g/dl (6.3-8.2); eGFR > 60.00
[2023-10-15 11:35] LABS: Glycohemoglobin (HgbA1c) 5.5 % (4.0-5.6)
--- NOTE | 2023-10-15 14:30 | PTCARENOTE ---
abnormal EKG reviewed by Dr. Arceo, no further action requested.
[2023-10-19] VITALS (8 sets, daily range): BP systolic 111–164; BP diastolic 63–79; BMI 33.8
[2023-10-19] MEDS: ENTEREG 12 MG PO (06:27)
[2023-10-19] MEDS: HEPARIN 5000 UNITS SC (06:27)
[2023-10-19] MEDS: TYLENOL 1000 MG PO (06:27)
[2023-10-19] MEDS: NORMOSOL-R/PLASMALYTE-A 1000 IV ×3 (06:44→23:54)
--- NOTE | 2023-10-19 12:34 | W.IMMPOSTOP ---
Addendum entered and electronically signed by Keshawn Page MD 10/19/23 12:51:
The right ureteral stent was removed intact at the end of the case.
Jackelyn Torres PA-C, participated in the sigmoidoscopy and anastomosis.
Original Note:
Surgical Immed Post Op Note
-
Primary Surgeon: Johnathon Page MD
Assistants: STEPHANIE Bennett and ELENO Neal
Pre-op Diagnosis: Sigmoid diverticulitis with intramural abscess
Post-op Diagnosis: Same
Procedure Performed: Cystoscopy with bilateral ureteral stents/ICG by Dr. Gonzales
Robotic sigmoid colectomy with takedown of splenic flexure and intracorporeal anastomosis
Appendectomy
Anesthesia Type: GET
Specimen / Cultures: Appendix
Sigmoid colon (suture is proximal)
Estimated Blood Loss: 40cc
Complications: None
Operative Findings: Marked inflammation of the distal sigmoid colon
Secondary involvement of the appendix
28mm EEA
Normal leak test
Patient's son updated.
[2023-10-19] MEDS: TORADOL 15 MG IV (15:15)
[2023-10-19] MEDS: TYLENOL 650 MG PO ×3 (15:49→23:54)
[2023-10-19] MEDS: TORADOL IV (20:03)
[2023-10-20 03:14] VITALS: BP 134/68
[2023-10-20] MEDS: TYLENOL 650 MG PO ×5 (03:37→19:57)
[2023-10-20] MEDS: TORADOL 15 MG IV ×4 (06:14→18:06)
[2023-10-20 06:59] LABS: Blood Urea Nitrogen 22 mg/dl (7-17); Calcium 8.9 mg/dl (8.4-10.2); Carbon Dioxide 27 mmol/L (22-30); Chloride 103 mmol/L (98-107); Estimated Creatinine Clearance 50 ml/min; Glucose 114 mg/dl (70-99); Potassium 3.8 mmol/L (3.5-5.1); Sodium 140 mmol/L (135-145); eGFR 58.39
[2023-10-20 07:00] VITALS: BP 148/63
[2023-10-20 07:24] LABS: % Basophils 0.2 % (0-2); % Immature Granulocytes 0.4 % (0-0.5); % Lymphocytes 9.2 % (20.5-51.1); % Monocytes 6.7 % (1.7-9.3); % Neutrophils 83.5 % (42.2-75.2); Absolute Lymphocytes 0.9 10^3/uL (1.2-3.4); Absolute Monocytes 0.7 10^3/uL (0.1-0.6); Absolute Neutrophils 8.6 10^3/uL (1.4-6.5); Hematocrit 26.9 % (37.0-47.0); Mean Corp Hgb Conc. 34.2 g/dL (33.0-37.0); Mean Corpuscular Volume 81.8 fL (81.0-99.0); Mean Platelet Volume 9.3 fL (7.4-10.4); Nucleated Red Blood Cells % 0 %; Platelet Count 219 10^3/uL (130-400); Red Blood Cell Count 3.29 10^6/uL (4.20-5.40); Red Cell Dist. Width 13.7 % (11.5-14.5); White Blood Cell Count 10.3 10^3/uL (4.8-10.8)
[2023-10-20 07:33] LABS: Hemoglobin 9.2 g/dL (12.0-16.0)
[2023-10-20] MEDS: ENTEREG 12 MG PO ×2 (09:09→19:57)
[2023-10-20] MEDS: LIPITOR 10 MG PO (09:09)
[2023-10-20] MEDS: ZOLOFT 100 MG PO (09:09)
[2023-10-20] MEDS: ZESTRIL 40 MG PO (09:10)
[2023-10-20] MEDS: TOPROL XL 50 MG PO (09:10)
[2023-10-20] MEDS: NORVASC 2.5 MG PO (09:10)
[2023-10-20] MEDS: NORMOSOL-R/PLASMALYTE-A 1000 IV ×2 (09:11→22:50)
--- NOTE | 2023-10-20 10:31 | W.PN.GS2 ---
Addendum entered and electronically signed by Shad Maxwell MD 10/20/23 12:04:
Patient seen and examined. Agree with assessment plan as documented below.
Major complaints. Pain well-controlled. Tolerating clears without nausea or vomiting. Ports passing flatus, no BM. Afebrile.
Gen: NAD
Abd: soft, mild tenderness, ND, non-peritoneal, incisions c/d/i - no erythema, ecchymosis or drainage
: Mesa with stent and light bloody urine
77 yo female with h/o sigmoid diverticulitis with abscess now POD #1 Robotic sigmoid colectomy with takedown of splenic flexure, appendectomy with cystoscopy and bilateral ureteral stent placement for identification of the ureters
AFVSS
Acute anemia present secondary to hemodilution and expected operative losses/mild hematuria
Electrolytes stable
Passing flatus/tolerating clears
--Advance to FLD
--Multimodal analgesics: tylenol Toradol, Tramadol, may need NSAID held if h/h continues to decrease
--Both stents have been removed, plan voiding trial in AM
--Recheck H&H later today and in AM
--Lovenox sq for VTE ppx if h/h stable, continue with SCD's as well while in bed
--OOB/Ambulate
--C/W home meds
Original Note:
Today's Communication / Plan
-
Follow labs
Advance diet
Assessment / Plan
-
77 yo female with h/o sigmoid diverticulitis with abscess now POD #1 Robotic sigmoid colectomy with takedown of splenic flexure, appendectomy with cystoscopy and bilateral ureteral stent placement for identification of the ureters
AFVSS
Acute anemia present secondary to hemodilution and expected operative losses/mild hematuria
Electrolytes stable
Passing flatus/tolerating clears
--Both stents have been removed, plan voiding trial in am
--recheck h/h later today and in am
--Lovenox sq for VTE ppx if h/h stable, continue with SCD's as well while in bed
--OOB/Ambulate
--Advance to FLD
--Multimodal analgesics. May need nsaid held if h/h continues to decrease
--C/W home meds
Subjective Data
-
Date of Service: October 20, 2023
Patient seen and examined at bedside with Dr. Maxwell. Denies n/v. Tolerating clears. Passing flatus, no bm's as of yet. Pain well managed.
Objective Data
-
Intake and Output
10/19/23 10/20/23 10/21/23
06:59 06:59 06:59
Intake Total 2110 / 2110
Output Total 665 / 665
Balance 1445 / 1445
Intake:
Oral fluids 460 / 460
IV fluids (Total) 1650 / 1650
Output:
Urine, Mesa 515 / 515
Urine, Voided 150 / 150
Vital Signs
Temp Pulse Resp BP Pulse Ox
97.5 F 63 18 148/63 96
10/20/23 07:00 10/20/23 07:00 10/20/23 07:00 10/20/23 09:10 10/20/23 07:00
Lab Results
10/20/23 06:11
Calcium 8.9 mg/dl (8.4-10.2) 10/20/23 06:11
Total Bilirubin 0.9 mg/dl (0.2-1.3) 10/15/23 08:55
AST 24 U/L (14-36) 10/15/23 08:55
ALT 17 U/L (0-35) 10/15/23 08:55
Alkaline Phosphatase 146 U/L (38-126) H 10/15/23 08:55
Total Protein 6.9 g/dl (6.3-8.2) 10/15/23 08:55
Albumin 4.0 g/dl (3.5-5.0) 10/15/23 08:55
Physical Exam
-
NAD
ABD soft/rounded, ND, incisions well approximated/intact with mild incisional tenderness
Mesa with minimal hematuria (stent removed)
[2023-10-20 11:00] VITALS: BP 130/62
--- NOTE | 2023-10-20 11:28 | CM ---
Met with pt at bedside
Pt reports she lives alone in a 1 story home in a [place] community - 2 steps to enter
Independent, active, driving
DME - rolling walker, cane, trekking poles
SNF - denies past hx
HH - [facility] and [facility] for IV abx
Has ride home when discharged
PCP - Dr Scott
Pharm - [facility]
When discharged plan is for pts son to stay with her for a week to assist at home
Current with [facility] - PT recs , will send referral in [facility]
[2023-10-20 13:16] LABS: Hematocrit 26.3 % (37.0-47.0); Hemoglobin 9.2 g/dL (12.0-16.0)
[2023-10-20 15:00] VITALS: BP 134/56
[2023-10-20] MEDS: LOVENOX 40 MG SC (17:02)
[2023-10-20 23:54] VITALS: BP 162/69
[2023-10-21] MEDS: TORADOL 15 MG IV ×3 (00:05→12:29)
[2023-10-21] MEDS: TYLENOL PO ×2 (00:11→04:42)
[2023-10-21 05:56] VITALS: BMI 35.0
[2023-10-21 07:33] LABS: Hematocrit 27.8 % (37.0-47.0); Hemoglobin 9.4 g/dL (12.0-16.0); Mean Corp Hgb Conc. 33.8 g/dL (33.0-37.0); Mean Corpuscular Volume 82.7 fL (81.0-99.0); Mean Platelet Volume 9.4 fL (7.4-10.4); Platelet Count 223 10^3/uL (130-400); Red Blood Cell Count 3.36 10^6/uL (4.20-5.40); Red Cell Dist. Width 13.8 % (11.5-14.5); White Blood Cell Count 10.6 10^3/uL (4.8-10.8)
[2023-10-21 08:00] VITALS: BP 173/93
[2023-10-21 08:01] LABS: Blood Urea Nitrogen 24 mg/dl (7-17); Calcium 9.1 mg/dl (8.4-10.2); Carbon Dioxide 30 mmol/L (22-30); Chloride 102 mmol/L (98-107); Estimated Creatinine Clearance 57 ml/min; Glucose 110 mg/dl (70-99); Potassium 3.8 mmol/L (3.5-5.1); Sodium 140 mmol/L (135-145); eGFR > 60.00
[2023-10-21] MEDS: TYLENOL 650 MG PO ×2 (08:18→12:29)
[2023-10-21] MEDS: ENTEREG PO (08:18)
[2023-10-21] MEDS: TOPROL XL 50 MG PO (08:19)
[2023-10-21] MEDS: NORVASC 2.5 MG PO (08:19)
[2023-10-21] MEDS: LIPITOR 10 MG PO (08:19)
[2023-10-21] MEDS: ZOLOFT 100 MG PO (08:19)
[2023-10-21] MEDS: ZESTRIL 40 MG PO (08:20)
--- NOTE | 2023-10-21 08:55 | W.PN.GS2 ---
Today's Communication / Plan
-
--DC today
Assessment / Plan
-
77 yo female with h/o sigmoid diverticulitis with abscess now POD #2 Robotic sigmoid colectomy with takedown of splenic flexure, appendectomy with cystoscopy and bilateral ureteral stent placement for identification of the ureters
AFVSS
Acute anemia present secondary to hemodilution and expected operative losses/mild hematuria, stable
Electrolytes stable
Passing flatus, BMs, and tolerating LRD
--LRD
--Pain control: Tylenol, Toradol, Tramadol
--Both stents have been removed, Mesa removed and voiding
--Lovenox sq for VTE ppx, continue with SCD's as well while in bed
--OOB/Ambulate
--C/W home meds
--DC today
Subjective Data
-
Date of Service: October 21, 2023
No complaints. Pain well-controlled. Tolerating low residue diet. Passing flatus and BMs. Mesa removed this AM and has already voided clear nonbloody urine. Ambulating. Afebrile.
Objective Data
-
Intake and Output
10/20/23 10/21/23 10/22/23
06:59 06:59 06:59
Intake Total 2110 / 2110 2345 / 2345 150 / 150
Output Total 665 / 665 1000 / 1000
Balance 1445 / 1445 1345 / 1345 150 / 150
Intake:
Oral fluids 460 / 460 1320 / 1320
IV fluids (Total) 1650 / 1650 1025 / 1025 150 / 150
Output:
Urine, Mesa 515 / 515 1000 / 1000
Urine, Voided 150 / 150
Other:
Number of approximated SMALL 1
amounts of urine
Number of approximated LARGE 1
amounts of urine
Vital Signs
Temp Pulse Resp BP Pulse Ox
98.1 F 108 18 173/93 93
10/21/23 08:00 10/21/23 08:00 10/21/23 08:00 10/21/23 08:19 10/21/23 08:00
Lab Results
10/21/23 05:59
10/21/23 05:59
Calcium 9.1 mg/dl (8.4-10.2) 10/21/23 05:59
Total Bilirubin 0.9 mg/dl (0.2-1.3) 10/15/23 08:55
AST 24 U/L (14-36) 10/15/23 08:55
ALT 17 U/L (0-35) 10/15/23 08:55
Alkaline Phosphatase 146 U/L (38-126) H 10/15/23 08:55
Total Protein 6.9 g/dl (6.3-8.2) 10/15/23 08:55
Albumin 4.0 g/dl (3.5-5.0) 10/15/23 08:55
Physical Exam
-
Gen: NAD
Abd: soft, NT/ND, non-peritoneal, incisions c/d/i - no erythema, ecchymosis, or drainage
--- NOTE | 2023-10-21 10:55 | CM ---
Case management following for discharge planning
Pt for poss d/c today in afternoon
[facility] to follow for home PT
Son will transport home. Will also stay with pt x1 wk
Discussed IMM
Plan - home with [facility]
f - [phone]
--- NOTE | 2023-10-21 14:02 | W.DCSUMMARY ---
Discharge Summary
Discharge Data
Date of Admission: 10/19/23
Date of Discharge: 10/21/23
-
Pending Results: No
Hospital Course
Ms King is a 77 yo female with a history of diverticulitis with abscess who presented for operative management with robotic sigmoid colectomy, appendectomy with cystoscopy preformed. She tolerated the procedure well without complication. Urteral
stents placed intraoperatively for identification of the ureters and hooks catheter able to be removed post operatively with no difficulty voiding thereafter. She had minimal post operative pain. Diet was able to be advanced and well tolerated with
good bowel recovery post operatively. She was discharged to home with family for outpatient follow up in the coming weeks.
Discharge Plan
-
Patient Disposition: Home (Routine Discharge)
Discharge Diagnosis/Procedures: Robotic sigmoid colectomy, appendectomy with cystoscopy
Condition: Good
Diet: Low Residue
Activity: No strenuous activity
Additional Activity: Do not lift over 10lbs (gallon of milk)
Bathing Restrictions: OK to Shower
Wound Care: The glue over your incisions to flake off on its own in 2-3 weeks. Avoid scrubbing or picking off the glue.
Activity Restrictions/Additional Instructions:
Call your surgeon if you have fever >100.4, nausea with vomiting or worsening abdominal pain
Referrals:
Keshawn Page MD [Active] - in two to four weeks
Merly Marvin MD [Family Provider] -
Prescriptions:
New
acetaminophen 325 mg tablet
650 mg PO Q4HPRN PRN (Reason: mild pain) Qty: 1 0RF
ibuprofen 200 mg tablet
400 - 600 mg PO Q6HPRN PRN (Reason: moderate pain) Qty: 1 0RF
tramadol 50 mg tablet
25 - 50 mg PO Q6HPRN PRN (Reason: severe pain/breakthrough pain) Qty: 10 0RF
Continued
kinwbktsurm-hyombxafp-mht C-Mn 1 TAB tablet
1 tab PO DAILY
Patient Comments:
1500/1200 mg
atorvastatin 10 MG tablet
10 mg PO DAILY
metoprolol succinate 50 MG tablet extended release 24 hr
50 mg PO DAILY
uebqw-0x-sqn-epa-fish oil 1 EACH capsule,delayed release(DR/EC)
1 tab PO DAILY
lisinopril 20 mg Tablet
40 mg PO DAILY
sertraline 100 mg Tablet
100 mg PO DAILY
amlodipine 2.5 mg Tablet
2.5 mg PO DAILY
hyoscyamine sulfate 0.125 mg Tablet
0.125 mg PO Q4HPRN PRN (Reason: ibs cramps)
cholecalciferol (vitamin D3) 25 mcg (1,000 unit) Tablet
25 mcg PO DAILY
Discontinued
metronidazole 500 mg Tablet
500 mg PO PRE OP
neomycin 500 mg Tablet
1,000 mg PO PRE OP
Sutab 1.479-0.188- 0.225 gram Tablet
0 tab PO PER PKG DIR
Discharge Orders:
Discharge Patient (As Directed); Ordered 10/21/23
Ordered By: Colette Hull
Discharge Date and Time
Print Language: ICELANDIC
[2023-10-21 14:13] VITALS: BP 168/90
== END 2023-10-21 15:08 | disposition home or self-care (01) | DRG 330 ==
LOC: 2 SOUTH 06:03
PROVIDERS: Registered Nurse; Specialist; ADMITTING PHYSICIAN Surgery; FAMILY PHYSICIAN Family Medicine
PROC: 0T788DZ Dilation of Bilateral Ureters with Intraluminal Device, Via Natural or Artificial Opening Endoscopic (ICD-10-PCS; 2023-10-19)
PROC: 8E0W4CZ Robotic Assisted Procedure of Trunk Region, Percutaneous Endoscopic Approach (ICD-10-PCS; 2023-10-19)
PROC: 0DTJ4ZZ Resection of Appendix, Percutaneous Endoscopic Approach (ICD-10-PCS; 2023-10-19)
PROC: 0DTN4ZZ Resection of Sigmoid Colon, Percutaneous Endoscopic Approach (ICD-10-PCS; 2023-10-19)
DX: K57.20 Diverticulitis of large intestine with perforation and abscess without bleeding (principal); D62 Acute posthemorrhagic anemia; I10 Essential (primary) hypertension; I34.0 Nonrheumatic mitral (valve) insufficiency; F32.4 Major depressive disorder, single episode, in partial remission; E66.9 Obesity, unspecified; Z68.35 Body mass index [BMI] 35.0-35.9, adult; K37 Unspecified appendicitis; K58.9 Irritable bowel syndrome, unspecified; N81.10 Cystocele, unspecified; E78.00 Pure hypercholesterolemia, unspecified; F41.9 Anxiety disorder, unspecified; K44.9 Diaphragmatic hernia without obstruction or gangrene; R73.01 Impaired fasting glucose; Z79.899 Other long term (current) drug therapy; Z86.39 Personal history of other endocrine, nutritional and metabolic disease; Z90.89 Acquired absence of other organs; Z87.19 Personal history of other diseases of the digestive system; Z87.442 Personal history of urinary calculi; Z88.0 Allergy status to penicillin; Z82.49 Family history of ischemic heart disease and other diseases of the circulatory system
CPT/HCPCS: 88304; 88307; 36415; 80048; 80053; 83036; 85014; 85018; 85025; 85027; 85610; 85730; 86850; 86900; 86901; 93005; 97162; J1335

== ENCOUNTER → 2024-06-03 10:32 | Outpatient (REF) | payer MEDICARE, OTHER, SELFPAY | LOC: RAD 10:32 | PROVIDERS: ATTENDING PHYSICIAN Nurse Practitioner Adult Health; FAMILY PHYSICIAN Family Medicine | DX: M54.41 Lumbago with sciatica, right side (principal); M54.42 Lumbago with sciatica, left side | CPT/HCPCS: 72110 ==

== ENCOUNTER → 2024-06-08 12:43 | Outpatient (REF) | payer MEDICARE, OTHER, SELFPAY | LOC: PAVMRI 12:43 | PROVIDERS: ATTENDING PHYSICIAN Nurse Practitioner Adult Health | DX: R26.89 Other abnormalities of gait and mobility (principal); I10 Essential (primary) hypertension; R29.6 Repeated falls | CPT/HCPCS: 70551 ==

== ENCOUNTER → 2024-07-26 10:19 | Outpatient (REF) | payer MEDICARE, OTHER, SELFPAY | LOC: MRI 3T 10:19 | PROVIDERS: ATTENDING PHYSICIAN Physical Medicine & Rehabilitation; FAMILY PHYSICIAN Family Medicine | DX: M54.16 Radiculopathy, lumbar region (principal) | CPT/HCPCS: 72148 ==